=== PATIENT | male | born 1985 | race Caucasian/White ===

== ENCOUNTER 2017-01-29 15:07 | Emergency (ER) | payer MEDICAID ==
[~2017-01-29] VITALS: Ht 188 cm; Wt 110.3 kg
[2017-01-29 15:11] VITALS: BP 128/80
[2017-01-29] MEDS ORDERED: LIDOCAINE 1%-EPI 1:100K, 20ML SQ ONE (15:30)
[2017-01-29] MEDS ORDERED: LIDOCAINE 1%-EPI 1:100K, 20ML ONE (15:46)
[2017-01-31] MEDS ORDERED: OLAN2.5T3 PO (11:27)
== END 2017-01-29 16:06 | disposition home or self-care (01) ==
LOC: ED 16:00
DX: L02.414 Cutaneous abscess of left upper limb (principal); F17.210 Nicotine dependence, cigarettes, uncomplicated
CPT/HCPCS: 10060

== ENCOUNTER 2017-05-16 19:10 | Emergency (ER) | payer MEDICAID ==
[~2017-05-16] VITALS: Ht 175.3 cm; Wt 119.0 kg
[~2017-05-16 19:10] MED LIST: OLAN2.5T3 PO
[2017-05-16 19:12] VITALS: BP 133/76
== END 2017-05-16 20:44 | disposition home or self-care (01) ==
LOC: ED 20:31
DX: S70.311A Abrasion, right thigh, initial encounter (principal); M79.604 Pain in right leg; Z98.890 Other specified postprocedural states; W22.09XA Striking against other stationary object, initial encounter; Y93.89 Activity, other specified; Y92.821 Forest as the place of occurrence of the external cause; Y99.8 Other external cause status
CPT/HCPCS: 99284

== ENCOUNTER 2017-09-11 20:44 | Emergency (ER) | payer MEDICAID ==
[~2017-09-11] VITALS: Ht 177.8 cm; Wt 113.0 kg
[2017-09-11 20:45] VITALS: BP 152/84
[2017-09-11] MEDS ORDERED: IBUPROFEN 200 MG TABLET ONE (20:58)
[2017-09-11] MEDS ORDERED: IBUPROFEN 200 MG TABLET PO ONE (21:00)
== END 2017-09-11 21:12 | disposition home or self-care (01) ==
LOC: ED 20:55
DX: L03.311 Cellulitis of abdominal wall (principal)
CPT/HCPCS: 99283

== ENCOUNTER 2017-12-06 17:30 | Emergency (ER) | payer MEDICAID ==
[~2017-12-06] VITALS: Ht 172.7 cm; Wt 95.1 kg
[2017-12-06 17:38] VITALS: BP 113/80
== END 2017-12-06 18:21 | disposition left against medical advice (07) ==
LOC: ED 18:15
DX: S00.81XA Abrasion of other part of head, initial encounter (principal); X58.XXXA Exposure to other specified factors, initial encounter; Y93.89 Activity, other specified; Y92.488 Other paved roadways as the place of occurrence of the external cause; Y99.8 Other external cause status
CPT/HCPCS: 99281

== ENCOUNTER 2017-12-17 14:45 | Emergency (ER) | payer MEDICAID ==
[~2017-12-17] VITALS: Ht 175.3 cm; Wt 100.0 kg
[2017-12-17 14:47] VITALS: BP 144/74
[2017-12-17] MEDS ORDERED: RISP1TAB3 PO (16:12)
== END 2017-12-17 16:13 | disposition home or self-care (01) ==
LOC: ED 16:00
DX: J20.8 Acute bronchitis due to other specified organisms (principal); Z76.0 Encounter for issue of repeat prescription; F20.9 Schizophrenia, unspecified; B97.89 Other viral agents as the cause of diseases classified elsewhere; F17.200 Nicotine dependence, unspecified, uncomplicated
CPT/HCPCS: 71046; 93005; 99284

== ENCOUNTER 2017-12-25 19:06 | Emergency (ER) | payer MEDICAID ==
[~2017-12-25] VITALS: Ht 162.6 cm; Wt 77.3 kg
[~2017-12-25 19:06] MED LIST changes: +RISP1TAB3 PO
[2017-12-25 19:13] VITALS: BP 139/82
== END 2017-12-25 19:44 | disposition home or self-care (01) ==
LOC: ED 19:30
DX: S81.812A Laceration without foreign body, left lower leg, initial encounter (principal); L03.116 Cellulitis of left lower limb; Z86.19 Personal history of other infectious and parasitic diseases; F20.9 Schizophrenia, unspecified; X58.XXXA Exposure to other specified factors, initial encounter; Y93.89 Activity, other specified; Y99.8 Other external cause status; Y92.488 Other paved roadways as the place of occurrence of the external cause
CPT/HCPCS: 99283

== ENCOUNTER 2018-01-09 12:08 | Emergency (ER) | payer MEDICAID ==
[~2018-01-09] VITALS: Ht 195.6 cm; Wt 103.0 kg
[2018-01-09] MEDS ORDERED: BACITRACIN ZINC OINT 500U/GM, 0.9 GM ONE (13:03)
[2018-01-09 13:46] VITALS: BP 130/71
== END 2018-01-09 13:49 | disposition home or self-care (01) ==
LOC: ED 13:44
DX: L03.116 Cellulitis of left lower limb (principal); F20.9 Schizophrenia, unspecified; J00 Acute nasopharyngitis [common cold]; Z76.0 Encounter for issue of repeat prescription
CPT/HCPCS: 99283

== ENCOUNTER 2018-04-23 17:56 | Emergency (ER) | payer MEDICAID ==
[~2018-04-23] VITALS: Ht 185.4 cm; Wt 94.9 kg
[2018-04-23 17:58] VITALS: BP 140/88
[2018-04-23] MEDS ORDERED: BACITRACIN ZINC OINT 500U/GM, 0.9 GM ONE (18:13)
== END 2018-04-23 18:32 | disposition home or self-care (01) ==
LOC: ED 18:05
DX: S00.81XA Abrasion of other part of head, initial encounter (principal); S30.811A Abrasion of abdominal wall, initial encounter; F17.200 Nicotine dependence, unspecified, uncomplicated; F10.220 Alcohol dependence with intoxication, uncomplicated; X58.XXXA Exposure to other specified factors, initial encounter; Y93.89 Activity, other specified; Y92.410 Unspecified street and highway as the place of occurrence of the external cause; Y99.8 Other external cause status
CPT/HCPCS: 99283

== ENCOUNTER 2018-07-19 21:36 | Emergency (ER) | payer MEDICAID ==
[~2018-07-19] VITALS: Ht 172.7 cm; Wt 97.0 kg
[2018-07-19] MEDS ORDERED: LORazepam 1MG TABLET PO ONE (22:30)
[2018-07-19] MEDS ORDERED: LORazepam 1MG TABLET ONE (22:31)
[2018-07-19 22:35] LABS: BASOPHILS # (AUTO) 0.08 x10^3/uL (0-0.1); BASOPHILS % (AUTO) 1 % (0-1); EOSINOPHILS % (AUTO) 2 % (1-7); LYMPHOCYTES # (AUTO) 2.43 x10^3/uL (1-3.4); LYMPHOCYTES % (AUTO) 20 % (22-44); MD NO; MEAN CORPUSCULAR HEMOGLOBIN 27.9 pg (27.5-34.5); MEAN CORPUSCULAR HGB CONC 33.4 g/dL (33.2-36.2); MEAN CORPUSCULAR VOLUME 83.6 fL (81-97); MEAN PLATELET VOLUME 8.2 fL (7.4-10.4); MONOCYTES # (AUTO) 1.18 x10^3/uL (0.2-0.8); MONOCYTES % (AUTO) 10 % (2-9); NEUTROPHILS # (AUTO) 8.13 x10^3/uL (1.8-6.8); NEUTROPHILS % (AUTO) 67 % (42-75); PLATELET COUNT 301 x10^3/uL (130-400); RED BLOOD COUNT 5.87 x10^6/uL (4.38-5.82); RED CELL DISTRIBUTION WIDTH 14.2 % (9.4-14.8)
[2018-07-19 22:47] LABS: ALBUMIN 4.4 g/dL (3.4-5.0); ANION GAP 10 mmol/L (5-15); CALCIUM 9.7 mg/dL (8.5-10.1); CHLORIDE 104 mmol/L (98-107); CREATININE 1.36 mg/dL (0.7-1.3)
[2018-07-20] MEDS ORDERED: ACETAMINOPHEN 325 MG TABLET ONE (01:07)
[2018-07-20 01:11] VITALS: BP 121/85
[2018-07-20] MEDS ORDERED: ACETAMINOPHEN 325 MG TABLET PO ONE (01:30)
== END 2018-07-20 01:13 | disposition home or self-care (01) ==
LOC: ED 22:35
DX: S50.312A Abrasion of left elbow, initial encounter (principal); S50.311A Abrasion of right elbow, initial encounter; F15.129 Other stimulant abuse with intoxication, unspecified; V03.99XA Pedestrian with other conveyance injured in collision with car, pick-up truck or van, unspecified whether traffic or nontraffic accident, initial encounter; Y93.89 Activity, other specified; Y92.89 Other specified places as the place of occurrence of the external cause; Y99.8 Other external cause status
CPT/HCPCS: 36415; 72170; 80048; 82040; 85025; 99285

== ENCOUNTER 2018-07-28 15:15 | Emergency (ER) | payer MEDICAID ==
[~2018-07-28] VITALS: Ht 175.3 cm; Wt 111.8 kg
[2018-07-28 16:09] VITALS: BP 127/68
== END 2018-07-28 17:46 | disposition left against medical advice (07) ==
LOC: ED 17:40
DX: M79.661 Pain in right lower leg (principal); M79.662 Pain in left lower leg; Z53.21 Procedure and treatment not carried out due to patient leaving prior to being seen by health care provider

== ENCOUNTER 2018-08-03 10:11 | Emergency (ER) | payer MEDICAID, OTHER ==
[~2018-08-03] VITALS: Ht 172.7 cm; Wt 99.3 kg
[2018-08-03 10:35] VITALS: BP 136/80
[2018-08-03] MEDS ORDERED: IBUPROFEN 200 MG TABLET PO ONE (11:00)
[2018-08-03] MEDS ORDERED: IBUPROFEN 200 MG TABLET ONE (11:34)
[2018-08-03] MEDS ORDERED: ACETAMINOPHEN 325 MG TABLET PO ONE (12:00)
[2018-08-03] MEDS ORDERED: ACETAMINOPHEN 325 MG TABLET ONE (12:15)
== END 2018-08-03 12:24 | disposition home or self-care (01) ==
LOC: ED 10:45
DX: S83.91XA Sprain of unspecified site of right knee, initial encounter (principal); S83.92XA Sprain of unspecified site of left knee, initial encounter; F17.200 Nicotine dependence, unspecified, uncomplicated; B19.20 Unspecified viral hepatitis C without hepatic coma; V03.99XA Pedestrian with other conveyance injured in collision with car, pick-up truck or van, unspecified whether traffic or nontraffic accident, initial encounter; Y93.01 Activity, walking, marching and hiking; Y92.410 Unspecified street and highway as the place of occurrence of the external cause; Y99.8 Other external cause status
CPT/HCPCS: 99284

== ENCOUNTER 2018-08-06 09:34 | Emergency (ER) | payer MEDICAID ==
[~2018-08-06] VITALS: Ht 195.6 cm; Wt 115.0 kg
[2018-08-06 10:21] LABS: BASOPHILS # (AUTO) 0.05 x10^3/uL (0-0.1); BASOPHILS % (AUTO) 1 % (0-1); EOSINOPHILS # (AUTO) 0.34 x10^3/uL (0-0.4); EOSINOPHILS % (AUTO) 5 % (1-7); LYMPHOCYTES # (AUTO) 1.89 x10^3/uL (1-3.4); LYMPHOCYTES % (AUTO) 26 % (22-44); MD NO; MEAN CORPUSCULAR HEMOGLOBIN 28.7 pg (27.5-34.5); MEAN CORPUSCULAR HGB CONC 33.7 g/dL (33.2-36.2); MEAN CORPUSCULAR VOLUME 85.1 fL (81-97); MEAN PLATELET VOLUME 8.8 fL (7.4-10.4); MONOCYTES # (AUTO) 0.58 x10^3/uL (0.2-0.8); MONOCYTES % (AUTO) 8 % (2-9); NEUTROPHILS # (AUTO) 4.47 x10^3/uL (1.8-6.8); NEUTROPHILS % (AUTO) 61 % (42-75); PLATELET COUNT 224 x10^3/uL (130-400); RED BLOOD COUNT 5.12 x10^6/uL (4.38-5.82); RED CELL DISTRIBUTION WIDTH 13.8 % (9.4-14.8)
[2018-08-06 10:32] LABS: ANION GAP 4 mmol/L (5-15); CALCIUM 8.6 mg/dL (8.5-10.1); CHLORIDE 110 mmol/L (98-107); CREATININE 0.96 mg/dL (0.7-1.3)
[2018-08-06 10:52] LABS: MICROSCOPIC NOT IND
[2018-08-06 10:56] LABS: CULTURE INDICATED? NO
[2018-08-06] MEDS ORDERED: OMNIPAQUE 350 MG/ML, 100ML BOTTLE ONE (11:25)
[2018-08-06 11:52] VITALS: BP 119/78
[2018-08-06 13:25] LABS: AMPHETAMINE SCREEN, URINE Negative (Negative); BARBITURATE SCREEN, URINE Negative (Negative); BENZODIAZEPINE SCREEN, URINE Negative (Negative); CANNABINOID SCREEN, URINE Positive (Negative); COCAINE SCREEN, URINE Negative (Negative); METHADONE SCREEN, URINE Negative (Negative); OPIATE SCREEN, URINE Negative (Negative)
== END 2018-08-06 11:54 | disposition home or self-care (01) ==
LOC: ED 10:33
DX: S20.02XA Contusion of left breast, initial encounter (principal); K92.1 Melena; F20.9 Schizophrenia, unspecified; Z86.19 Personal history of other infectious and parasitic diseases; V03.90XA Pedestrian on foot injured in collision with car, pick-up truck or van, unspecified whether traffic or nontraffic accident, initial encounter; Y93.89 Activity, other specified; Y99.8 Other external cause status; Y92.410 Unspecified street and highway as the place of occurrence of the external cause
CPT/HCPCS: 36415; 71260; 74177; 80048; 80307; 81003; 85025; 99285; Q9967

== ENCOUNTER 2018-08-25 19:50 | Emergency (ER) | payer MEDICAID, OTHER ==
[~2018-08-25] VITALS: Ht 188 cm; Wt 106.5 kg
[2018-08-25 19:52] VITALS: BP 134/86
== END 2018-08-25 20:26 | disposition home or self-care (01) ==
LOC: ED 20:01
DX: J20.8 Acute bronchitis due to other specified organisms (principal); B97.89 Other viral agents as the cause of diseases classified elsewhere; J00 Acute nasopharyngitis [common cold]; F20.9 Schizophrenia, unspecified
CPT/HCPCS: 71046; 99284

== ENCOUNTER 2018-08-30 19:03 | Emergency (ER) | payer OTHER ==
[~2018-08-30] VITALS: Ht 157.5 cm; Wt 105.2 kg
[2018-08-30 19:07] VITALS: BP 99/72
== END 2018-08-30 20:03 | disposition home or self-care (01) ==
LOC: ED 19:20
DX: J18.9 Pneumonia, unspecified organism (principal)
CPT/HCPCS: 71045; 99283

== ENCOUNTER 2018-10-27 18:28 | Emergency (ER) | payer MEDICAID ==
[~2018-10-27] VITALS: Ht 172.7 cm; Wt 105.3 kg
[2018-10-27 18:53] VITALS: BP 133/65
[2018-10-27] MEDS ORDERED: ACETAMINOPHEN 325 MG TABLET ONE ×2 (19:27→19:39)
[2018-10-27] MEDS ORDERED: IBUPROFEN 200 MG TABLET ONE ×2 (19:28→19:39)
[2018-10-27] MEDS ORDERED: IBUPROFEN 200 MG TABLET PO ONE (19:30)
[2018-10-27] MEDS ORDERED: ACETAMINOPHEN 325 MG TABLET PO ONE (19:30)
== END 2018-10-27 19:47 | disposition home or self-care (01) ==
LOC: ED 19:09
DX: J06.9 Acute upper respiratory infection, unspecified (principal)
CPT/HCPCS: 71046; 99283